=== PATIENT | female | born 1995 | race American Indian/Alaskan Native ===

== ENCOUNTER 2016-12-21 19:36 | Emergency (ER) | payer SELFPAY ==
[2016-12-21 20:22] VITALS: BP 159/101
[2016-12-21 20:52] LABS: Hematocrit 37.3 % (30.3-42.9); Hemoglobin 11.9 gm/dl (10.1-14.3); Mean Corpuscular HGB Conc 32 % (30-34); Mean Corpuscular Volume 81 fl (79-97); Platelet Count 252 K/mm3 (140-440); Red Blood Count 4.62 M/mm3 (3.65-5.03); Red Cell Distribution Width 13.2 % (13.2-15.2); White Blood Count 5.1 K/mm3 (4.5-11.0)
[2016-12-21 21:03] LABS: Anion Gap 17 mmol/L; Blood Urea Nitrogen 9 mg/dL (7-17); Calcium 8.9 mg/dL (8.4-10.2); Carbon Dioxide 22 mmol/L (22-30); Chloride 99.4 mmol/L (98-107); Glucose 89 mg/dL (65-100); Potassium 3.8 mmol/L (3.6-5.0); Sodium 135 mmol/L (137-145)
[2016-12-21 21:13] LABS: Bilirubin,Urine NEG (Negative); Blood,Urine NEG (Negative); Ketones,Urine NEG (Negative); Leukocyte Esterase,Urine NEG (Negative); Mucus,Urine FEW /HPF; Nitrite,Urine NEG (Negative); Protein,Urine <15 mg/dL mg/dL (Negative); RBC,Urine < 1.0 /HPF (0.0-6.0)
[2016-12-21 21:21] LABS: Mean Corpuscular Hemoglobin 26 pg (28-32)
[2016-12-21] MEDS ORDERED: TYLENOL PO ONE (21:56)
[2016-12-21] MEDS ORDERED: ZOFRAN ODT PO ONE (21:56)
[2016-12-21] MEDS ORDERED: TORADOL IM ONE (21:56)
--- NOTE | 2016-12-21 22:33 | Emergency Department Report ---
HPI - General Chief Complaint: Nausea/Vomiting/Diarrhea Time Seen by Provider: 12/21/16 21:55 - HPI HPI: The patient is a 21-year-old female who presents for evaluation of abdominal pain. The patient reports 2 days of epigastric abdominal pain, 9/10 in severity , cramping in quality, exacerbated with retching and vomiting. She reports associated with episodes of nausea and no bruises, nonbloody emesis and loose watery stools absent of blood. The patient denies fever, chills, night sweats, chest pain, dyspnea, or defecate dark tarry stool, dysuria, hematuria, flank pain, vaginal discharge, inability to pass flatus. ED Past Medical Hx - Past Medical History Previous Medical History?: No Hx Hypertension: Yes (noncompliant with HCTZ x3 mos) Hx Headaches / Migraines: Yes Additional medical history: glaucoma, anemic - Surgical History Past Surgical History?: No - Social History Smoking Status: Never Smoker Substance Use Type: None - Medications Home Medications: Home Medications Medication Instructions Recorded Confirmed Last Taken Type Menthol/Colloidal Oatmeal [Eucerin 200 ml TP TID #1 lotion 06/15/15 Unknown Rx Calm Itch-Relief Lot] Butalbit/Acetamin/Caff/Codeine 1 cap PO Q8HR PRN #20 cap 11/29/15 Unknown Rx [Fioricet/Codeine 51-979-02-30] Ketorolac [Toradol] 10 mg PO Q6H PRN #20 tablet 04/29/16 Unknown Rx Ondansetron [Zofran TAB] 4 mg PO Q8HR PRN #20 tablet 04/29/16 Unknown Rx SUMAtriptan SUCCINATE [Imitrex] 50 mg PO BID #60 tab 04/29/16 Unknown Rx Cyclobenzaprine HCl [Flexeril 5 MG 5 mg PO TID #20 tab 06/05/16 Unknown Rx TAB] Hydrochlorothiazide [HCTZ] 25 mg PO QAM #30 tablet 06/05/16 Unknown Rx Ibuprofen [Motrin 800 MG tab] 800 mg PO Q8H PRN #30 tablet 06/05/16 Unknown Rx Ibuprofen [Motrin 800 MG tab] 800 mg PO Q8HR PRN #20 tablet 09/03/16 Unknown Rx HYDROcodone/APAP 7.5-325 [[place] 1 each PO Q8HR PRN #12 tablet 12/22/16 Unknown Rx 7.5-325 mg TAB] Ondansetron [Zofran TAB] 4 mg PO Q8HR PRN #20 tablet 12/22/16 Unknown Rx ED Review of Systems ROS: Stated complaint: EMESIS/ABD PAIN/DIARRHEA Other details as noted in HPI Constitutional: denies: fever ENT: denies: throat or neck pain Respiratory: denies: cough, shortness of breath Cardiovascular: denies: chest pain Endocrine: denies unexplained weight loss or gain Gastrointestinal: reports abdominal pain, nausea, vomiting, diarrhea Genitourinary: denies: dysuria Musculoskeletal: denies: leg swelling Skin: denies: rash Neurological: denies: headache Hematological/Lymphatic: denies: easy bleeding or easy bruising Psych: denies sadness or hopelessness Physical Exam - Physical Exam Vital Signs: Vital Signs 12/21/16 20:18 Temperature 99.6 F Pulse Rate 108 H Respiratory 18 Rate Blood Pressure 159/101 O2 Sat by Pulse 99 Oximetry Physical Exam: General: well-nourished, well-developed, no acute distress Head: Normocephalic, atraumatic Eyes: normal sclera ENT: Mucous membranes are pale and dry Neck: trachea midline, neck supple, No neck stiffness, no cervical adenopathy Respiratory: Breath sounds equal bilaterally, no wheezing, rales, or rhonchi Cardio: S1 and S2 present, no murmurs, rubs, gallops, capillary refill is delayed Abdomen: Normoactive bowel sounds, soft abdomen, epigastric tenderness to palpation present, no rigidity, no guarding or rebound tenderness Musc: No pitting edema Skin: No rash Neuro: no facial drooping, normal speech Psych: Normal affect ED Course Vital Signs 12/21/16 20:18 Temperature 99.6 F Pulse Rate 108 H Respiratory 18 Rate Blood Pressure 159/101 O2 Sat by Pulse 99 Oximetry ED Medical Decision Making - Lab Data Result diagrams: 12/21/16 20:33 12/21/16 20:33 - Medical Decision Making The patient was seen and examined by myself. The patient is placed on a shingles roofer helper and continuous pulse ox. On initial evaluation, the patient was found to be in no distress. Evaluation orders are placed. The patient is given an IM dose of toradol for her pain and Zofran for nausea. Lab results were non- concerning including WBC, hemoglobin, hematocrit, electrolytes, renal function, LFTs, lipase, and neg preg test. The patient was reevaluated and reported that their symptoms were markedly improved. The patient is stable for discharge with outpatient follow-up. The patient is given follow-up and return instructions. The patient expressed understanding and agreed with the plan. The patient is discharged in stable condition. Critical care attestation.: If time is entered above; I have spent that time in minutes in the direct care of this critically ill patient, excluding procedure time. ED Disposition Clinical Impression: Abdominal pain, acute, epigastric, Dehydration Disposition: DISCHARGED TO HOME OR SELFCARE Is pt being admited?: No Does the pt Need Aspirin: No Condition: Stable Instructions: Gastroenteritis (ED), Acute Abdominal Pain (ED), Food Poisoning ( ED) Referrals: PRIMARY CARE, [Primary Care Provider] - 3-5 Days Time of Disposition: 22:16
[2016-12-21 22:55] LABS: Basophils % (Manual) 0 % (0.0-1.8); Blastocytes % (Manual) 0 %
[2016-12-21 22:56] LABS: Anisocytosis 1+
[2016-12-21 22:57] LABS: Ovalocytes Few
[2016-12-21 22:58] LABS: Diff Status Complete
[2016-12-22 00:25] LABS: Alanine Aminotransferase 22 units/L (7-56); Albumin 3.8 g/dL (3.9-5); Albumin/Globulin Ratio 0.9 %; Alkaline Phosphatase 129 units/L (35-129); Bilirubin,Total 0.6 mg/dL (0.1-1.2); Lipase 18 units/L (13-60); Total Protein 7.9 g/dL (6.3-8.2)
[2016-12-22 00:26] LABS: Bilirubin,Direct < 0.2 mg/dL (0-0.2); Bilirubin,Indirect 0.4 mg/dL
== END 2016-12-22 00:51 | disposition home or self-care (01) ==
LOC: ED 19:36
DX: E86.0 Dehydration (principal); R13.10 Dysphagia, unspecified; I10 Essential (primary) hypertension; G43.909 Migraine, unspecified, not intractable, without status migrainosus
CPT/HCPCS: 36415; 80048; 80074; 81001; 81025; 83690; 85007; 85025; 96372; 99284; J1885; Q0162

== ENCOUNTER 2017-02-04 11:18 | Emergency (ER) | payer SELFPAY ==
[2017-02-04] MEDS ORDERED: DECADRON IM ONE (12:42)
[2017-02-04] MEDS ORDERED: BENADRYL PO ONE (12:42)
[2017-02-04] MEDS ORDERED: PEPCID PO ONE (12:43)
[2017-02-04] MEDS ORDERED: CATAPRES ONE (12:56)
[2017-02-04] MEDS ORDERED: CATAPRES PO ONE (12:58)
[2017-02-04 14:21] VITALS: BP 145/99
--- NOTE | 2017-02-04 14:27 | Emergency Department Report ---
Entered by KOMAL BILLINGSLEY, acting as scribe for EMILY BECERRIL PA. HPI - General Chief Complaint: Allergic Reaction Time Seen by Provider: 02/04/17 12:27 - HPI HPI: 21 year old female with a PMHx of HTN and migranes presents to the ED c/o an allergic reaction that began yesterday afternoon. Patient states she applied Blistex Daily Conditioning Treatment to her lips and they subsequently swelled right after application. Associated symptoms include itching, burning, and blisters with clear purulent drainage, but she denies fever, chills, nausea, vomiting, chest pain, SOB, and abdominal pain. Notes taking Benadryl last night with no relief. Reports having similar symptoms in the past with different lip applications. Patient is noncompliant with her blood pressure medication. ED Past Medical Hx - Past Medical History Previous Medical History?: No Hx Hypertension: Yes (noncompliant with HCTZ x3 mos) Hx Headaches / Migraines: Yes Additional medical history: glaucoma, anemic - Surgical History Past Surgical History?: No Hx Coronary Stent: No Hx Cholecystectomy: No Hx Appendectomy: No - Social History Smoking Status: Current Every Day Smoker Substance Use Type: None - Medications Home Medications: Home Medications Medication Instructions Recorded Confirmed Last Taken Type Menthol/Colloidal Oatmeal [Eucerin 200 ml TP TID #1 lotion 06/15/15 Unknown Rx Calm Itch-Relief Lot] Butalbit/Acetamin/Caff/Codeine 1 cap PO Q8HR PRN #20 cap 11/29/15 Unknown Rx [Fioricet/Codeine 98-443-10-30] Ketorolac [Toradol] 10 mg PO Q6H PRN #20 tablet 04/29/16 Unknown Rx Ondansetron [Zofran TAB] 4 mg PO Q8HR PRN #20 tablet 04/29/16 Unknown Rx SUMAtriptan SUCCINATE [Imitrex] 50 mg PO BID #60 tab 04/29/16 Unknown Rx Cyclobenzaprine HCl [Flexeril 5 MG 5 mg PO TID #20 tab 06/05/16 Unknown Rx TAB] Hydrochlorothiazide [HCTZ] 25 mg PO QAM #30 tablet 06/05/16 Unknown Rx Ibuprofen [Motrin 800 MG tab] 800 mg PO Q8H PRN #30 tablet 06/05/16 Unknown Rx Ibuprofen [Motrin 800 MG tab] 800 mg PO Q8HR PRN #20 tablet 09/03/16 Unknown Rx HYDROcodone/APAP 7.5-325 [[place] 1 each PO Q8HR PRN #12 tablet 12/22/16 Unknown Rx 7.5-325 mg TAB] Ondansetron [Zofran TAB] 4 mg PO Q8HR PRN #20 tablet 12/22/16 Unknown Rx diphenhydrAMINE [Benadryl CAP] 25 mg PO Q6HR PRN #40 capsule 02/04/17 Unknown Rx predniSONE [Deltasone] 20 mg PO QDAY #5 tab 02/04/17 Unknown Rx ED Review of Systems ROS: Stated complaint: ALLERGIC REACTION Other details as noted in HPI Comment: All other systems reviewed and negative Constitutional: denies: chills, fever, other (tingling) Eyes: denies: eye pain ENT: denies: ear pain, throat pain Respiratory: denies: cough, orthopnea, shortness of breath, SOB with exertion, SOB at rest, stridor Cardiovascular: denies: chest pain, dyspnea on exertion, orthopnea Gastrointestinal: denies: abdominal pain, nausea, vomiting Skin: other (swollen lips and blisters with clear drainage). denies: rash Neurological: denies: numbness Physical Exam - Physical Exam Vital Signs: Vital Signs 02/04/17 11:52 Temperature 98.3 F Pulse Rate 77 Respiratory 18 Rate Blood Pressure 161/112 O2 Sat by Pulse 100 Oximetry General: General: The patient is well-developed and well-nourished. Patient is in NAD. Physical Exam: HEAD: Normocephalic. Atraumatic. EYES: Extraocular motions are intact, PERRL. EARS: External auditory canals and tympanic membranes clear NOSE: Normal nasal mucosa with no nasal discharge. THROAT: No erythema, swelling or exudates. NECK: Supple, nontender, without lymphadenopathy. No meningitic signs are noted. CHEST/LUNGS: Clear to auscultation throughout. HEART/CARDIOVASCULAR: Regular rate and rhythm. No murmurs, rubs or gallops. ABDOMEN: Abdomen is soft, nontender. Bowel sounds normoactive. No guarding or rebound tenderness. EXTREMITIES: No cyanosis, clubbing or edema. Skin: warm, dry, and intact. Lip swelling with no blisters or purulent drainage present. NEURO: Alert and oriented x 3. Psychiatric: Normal mood. Normal affect. ED Course Vital Signs 02/04/17 11:52 Temperature 98.3 F Pulse Rate 77 Respiratory 18 Rate Blood Pressure 161/112 O2 Sat by Pulse 100 Oximetry ED Medical Decision Making - Lab Data Vital Signs 02/04/17 02/04/17 02/04/17 11:52 13:07 13:46 Temperature 98.3 F 97.8 F Pulse Rate 77 82 66 Respiratory 18 18 Rate Blood Pressure 161/112 165/121 Blood Pressure 158/108 [Right] O2 Sat by Pulse 100 100 Oximetry 02/04/17 14:21 Temperature Pulse Rate 88 Respiratory 18 Rate Blood Pressure Blood Pressure 145/99 [Right] O2 Sat by Pulse Oximetry - Medical Decision Making 21-year-old female presents today complaining of lip swelling close with Blistex application and elevated blood pressure. Patient has history of hypertension and is noncompliant with her medication. Patient was given clonidine 0.2 mg, Benadryl, Pepcid and Decadron. Patient reports some symptomatic relief. Patient is in no acute distress at this time. She will be discharged home and is encouraged to follow up with a primary care provider. She will be sent home on Benadryl and steroid and is encouraged to return to the emergency room for any worsening symptoms. Emphasized the importance of follow up with primary care physician and explained to patient that uncontrolled hypertension can lead to long-term complications of hypertension/elevated blood pressure including stroke, heart attack, disability, , paralysis, permanent loss of quality of life. Patient expressed understanding. She states she has hydrochlorothiazide at home and will take it regularly. Critical care attestation.: If time is entered above; I have spent that time in minutes in the direct care of this critically ill patient, excluding procedure time. ED Disposition Clinical Impression: Allergic reaction Qualifiers: Encounter type: initial encounter Qualified Code(s): T78.40XA - Allergy, unspecified, initial encounter Disposition: DISCHARGED TO HOME OR SELFCARE Is pt being admited?: No Does the pt Need Aspirin: No Condition: Stable Instructions: Anaphylaxis (ED), Allergies (ED) Additional Instructions: Follow-up with primary care provider. Return to the emergency department if symptoms worsen. Prescriptions: diphenhydrAMINE [Benadryl CAP] 25 mg PO Q6HR PRN #40 capsule PRN Reason: Itching predniSONE [Deltasone] 20 mg PO QDAY #5 tab Referrals: PRIMARY CARE,MD [Primary Care Provider] - 3-5 Days [facility] [Outside] - 3-5 Days Forms: Work/School Release Form(ED) Time of Disposition: 14:23 This documentation as recorded by the JOSE CRUZ masters JASMINE,accurately reflects the service I personally performed and the decisions made by ,EMILY BECERRIL PA.
== END 2017-02-04 16:54 | disposition home or self-care (01) ==
LOC: ED 11:18
DX: T78.40XA Allergy, unspecified, initial encounter (principal); I10 Essential (primary) hypertension; G43.909 Migraine, unspecified, not intractable, without status migrainosus; F17.200 Nicotine dependence, unspecified, uncomplicated
CPT/HCPCS: 96372; 99282; J1100

== ENCOUNTER 2017-03-19 20:35 | Emergency (ER) | payer SELFPAY ==
[2017-03-19] MEDS ORDERED: TYLENOL ONE (23:40)
[2017-03-19] MEDS ORDERED: ORAPRED ONE ×2 (23:41→23:43)
[2017-03-19] MEDS ORDERED: APRESOLINE ONE (23:51)
[2017-03-19] MEDS ORDERED: ORAPRED PO ONE (23:57)
[2017-03-19] MEDS ORDERED: TYLENOL PO ONE (23:58)
[2017-03-19] MEDS ORDERED: APRESOLINE PO ONE (23:58)
[2017-03-20] VITALS: BP 160/115
--- NOTE | 2017-03-24 00:51 | ED Elopement Review ---
ED Pt Elopement review - Call Back decision Pt Call Back Decision: No action required
== END 2017-03-20 01:30 | disposition left against medical advice (07) ==
LOC: ED 20:35
DX: R50.9 Fever, unspecified (principal); Z53.21 Procedure and treatment not carried out due to patient leaving prior to being seen by health care provider
CPT/HCPCS: 87116; 87430; J7510

== ENCOUNTER 2017-03-21 22:58 | Emergency (ER) | payer SELFPAY ==
[2017-03-21] MEDS ORDERED: TYLENOL ONE ×2 (23:56→23:58)
[2017-03-22] MEDS ORDERED: TYLENOL PO ONE
[2017-03-22] MEDS ORDERED: DELTASONE PO ONE (07:40)
--- NOTE | 2017-03-22 07:57 | Emergency Department Report ---
HPI - General Chief Complaint: Sore Throat Time Seen by Provider: 03/22/17 07:34 - HPI HPI: Patient is a 21-year-old female who presents to ED with his mother complaining of throat pain 4 days. Patient describes pain as throbbing in nature, 8 out of 10 intensity, nonradiating, localized to his throat. Admits pain with swallowing and eating. Patient admits no appetite due to throat pain. Patient admits dry, nonproductive cough. Patient admits mild fever Patient denies nausea/vomiting/abdominal pain/shortness of breath/chest pain/ headache. ED Past Medical Hx - Past Medical History Previous Medical History?: Yes Hx Hypertension: Yes (noncompliant with HCTZ x3 mos) Hx Headaches / Migraines: Yes Additional medical history: glaucoma, anemic - Surgical History Hx Coronary Stent: No Hx Cholecystectomy: No Hx Appendectomy: No - Social History Smoking Status: Never Smoker Substance Use Type: Alcohol - Medications Home Medications: Home Medications Medication Instructions Recorded Confirmed Last Taken Type Menthol/Colloidal Oatmeal [Eucerin 200 ml TP TID #1 lotion 06/15/15 Unknown Rx Calm Itch-Relief Lot] Butalbit/Acetamin/Caff/Codeine 1 cap PO Q8HR PRN #20 cap 11/29/15 Unknown Rx [Fioricet/Codeine 14-882-39-30] Ketorolac [Toradol] 10 mg PO Q6H PRN #20 tablet 04/29/16 Unknown Rx Ondansetron [Zofran TAB] 4 mg PO Q8HR PRN #20 tablet 04/29/16 Unknown Rx SUMAtriptan SUCCINATE [Imitrex] 50 mg PO BID #60 tab 04/29/16 Unknown Rx Cyclobenzaprine HCl [Flexeril 5 MG 5 mg PO TID #20 tab 06/05/16 Unknown Rx TAB] Hydrochlorothiazide [HCTZ] 25 mg PO QAM #30 tablet 06/05/16 Unknown Rx Ibuprofen [Motrin 800 MG tab] 800 mg PO Q8HR PRN #20 tablet 09/03/16 Unknown Rx HYDROcodone/APAP 7.5-325 [[place] 1 each PO Q8HR PRN #12 tablet 12/22/16 Unknown Rx 7.5-325 mg TAB] Ondansetron [Zofran TAB] 4 mg PO Q8HR PRN #20 tablet 12/22/16 Unknown Rx predniSONE [Deltasone] 20 mg PO QDAY #5 tab 02/04/17 Unknown Rx Ibuprofen [Motrin 800 MG tab] 800 mg PO Q8H PRN #30 tablet 03/22/17 Unknown Rx Pseudoephedrine [Sudafed] 30 mg PO TID #30 tablet 03/22/17 Unknown Rx diphenhydrAMINE [Benadryl CAP] 25 mg PO Q6HR PRN #40 capsule 03/22/17 Unknown Rx ED Review of Systems ROS: Stated complaint: SORE THROAT W/SWELLING/EARS PAINFUL/HEADACHE Other details as noted in HPI Constitutional: denies: chills, fever Eyes: denies: eye pain, eye discharge, vision change ENT: ear pain, throat pain. denies: dental pain, hearing loss, congestion Respiratory: cough. denies: shortness of breath, wheezing Cardiovascular: denies: chest pain, palpitations Endocrine: no symptoms reported Gastrointestinal: denies: abdominal pain, nausea, vomiting, diarrhea, constipation, hematemesis Genitourinary: denies: urgency, dysuria, discharge Musculoskeletal: denies: back pain, joint swelling, arthralgia Skin: denies: rash, lesions Neurological: denies: headache, weakness, paresthesias Psychiatric: denies: anxiety, depression Hematological/Lymphatic: denies: easy bleeding, easy bruising Physical Exam - Physical Exam Vital Signs: Vital Signs 03/21/17 03/22/17 03/22/17 23:50 00:01 07:28 Temperature 101.3 F H 98.9 F Pulse Rate 111 H 93 H Respiratory 18 20 16 Rate Blood Pressure 146/96 Blood Pressure 157/112 [Left] O2 Sat by Pulse 98 100 Oximetry Physical Exam: GENERAL: Alert and oriented x3, no apparent distress, Normal Gait, atraumatic. HEAD: Head is normocephalic and a-traumatic. EYES: Extra ocular muscles are intact. Pupils are equal, round, and reactive to light and accommodation. EARS: symetrical, atraumatic, non tender, ear canal clear and moderate cerumen, tympanic membrance non inflamed. Serous fluid behind tympanic membrane Bilaterally. gross auditory nml bilaterally. NOSE: Nose symetrical, Nontender,Nares appeared normal. MOUTH:Mouth is well hydrated and without lesions. Tonsils nonerythematous, mildly swollen, Uvula midline, Tongue not elevated. Mucous membranes are moist. Posterior pharynx clear, no exudate or lesions. Patent airways. NECK: Supple. Non edematous, No carotid bruits. No lymphadenopathy or thyromegaly. LUNGS: Symetrical with respiration, No wheezing, no rales or crackles, CTAB. HEART: S1, S2 present, regular rate and rhythm without murmur, no rubs, no gallops. SKIN: Warm and dry, No lesions, No ulceration or induration present. ED Course Vital Signs 03/21/17 03/22/17 03/22/17 23:50 00:01 07:28 Temperature 101.3 F H 98.9 F Pulse Rate 111 H 93 H Respiratory 18 20 16 Rate Blood Pressure 146/96 Blood Pressure 157/112 [Left] O2 Sat by Pulse 98 100 Oximetry ED Medical Decision Making - Medical Decision Making 21-year-old female presents with upper respiratory infection ED course: Patient received Magic mouthwash, Tylenol, prednisone ED stay Rapid strep test ordered. Rapid strep is negative, culture pending Discussed results with patient. Discussed the patient to rest, take medications as prescribed. Discussion a patient upper respiratory infections resolve on its own viral in nature. Vital signs much better. Patient's fever reduced ED stay She is in no acute distress. She reports feeling better. Discussed the patient follow up with primary care physician. Critical care attestation.: If time is entered above; I have spent that time in minutes in the direct care of this critically ill patient, excluding procedure time. ED Disposition Clinical Impression: URI (upper respiratory infection) Qualifiers: URI type: unspecified URI Qualified Code(s): J06.9 - Acute upper respiratory infection, unspecified Disposition: TO HOME OR SELFCARE Is pt being admited?: No Does the pt Need Aspirin: No Condition: Stable Instructions: Upper Respiratory Infection (ED) Prescriptions: diphenhydrAMINE [Benadryl CAP] 25 mg PO Q6HR PRN #40 capsule PRN Reason: Itching Ibuprofen [Motrin 800 MG tab] 800 mg PO Q8H PRN #30 tablet PRN Reason: Pain Pseudoephedrine [Sudafed] 30 mg PO TID #30 tablet Referrals: PRIMARY CARE, [Primary Care Provider] - 3-5 Days SHAGUFTA BUSBY MD [Referring] - 3-[address] [facility] [Outside] - 3-5 Days [facility] [Outside] - 3-5 Days [facility] [Outside] - 3-5 Days Forms: Work/School Release Form(ED) Time of Disposition: 08:42
[2017-03-22] MEDS ORDERED: MAGIC MOUTHWASH PO ONE (08:30)
[2017-03-22 09:08] VITALS: BP 147/105
== END 2017-03-22 09:07 | disposition home or self-care (01) ==
LOC: ED 22:58
DX: J06.9 Acute upper respiratory infection, unspecified (principal); I10 Essential (primary) hypertension; G43.909 Migraine, unspecified, not intractable, without status migrainosus; H40.9 Unspecified glaucoma; D64.9 Anemia, unspecified
CPT/HCPCS: 87116; 87430; 99282; J7512

== ENCOUNTER 2017-09-23 20:31 | Emergency (ER) | payer BC ==
[2017-09-23 21:14] LABS: Basophils % (Auto) 0.3 % (0.0-1.8); Eosinophils % (Auto) 0.8 % (0.0-4.3); Hemoglobin 12.5 gm/dl (10.1-14.3); Mean Corpuscular HGB Conc 33 % (30-34); Mean Corpuscular Hemoglobin 27 pg (28-32); Mean Corpuscular Volume 82 fl (79-97); Platelet Count 312 K/mm3 (140-440); Red Blood Count 4.61 M/mm3 (3.65-5.03); Red Cell Distribution Width 14.3 % (13.2-15.2); White Blood Count 10.1 K/mm3 (4.5-11.0)
[2017-09-23 21:41] LABS: Anion Gap 21 mmol/L; BUN/Creatinine Ratio 14; Blood Urea Nitrogen 13 mg/dL (7-17); Calcium 9.2 mg/dL (8.4-10.2); Carbon Dioxide 20 mmol/L (22-30); Chloride 100.8 mmol/L (98-107); Glucose 113 mg/dL (65-100); Potassium 4.2 mmol/L (3.6-5.0); Sodium 138 mmol/L (137-145)
[2017-09-23 21:45] LABS: Urine Drugs of Abuse Note Disclamer
[2017-09-23 21:57] LABS: Bilirubin,Urine NEG (Negative); Blood,Urine NEG (Negative); Ketones,Urine NEG (Negative); Leukocyte Esterase,Urine NEG (Negative); Mucus,Urine FEW /HPF; Nitrite,Urine NEG (Negative); Urobilinogen,Urine < 2.0 mg/dL (<2.0)
[2017-09-24] MEDS ORDERED: ZOFRAN IV ONE (09:16)
[2017-09-24] MEDS ORDERED: PEPCID IV ONE (09:16)
[2017-09-24] MEDS ORDERED: NACL 0.9% 1000 ML 1,000 ML IV ONE (09:16)
--- NOTE | 2017-09-24 09:23 | Emergency Department Report ---
HPI - General Chief Complaint: Nausea/Vomiting/Diarrhea Time Seen by Provider: 09/24/17 09:09 - HPI HPI: Call 25 The patient is a 22-year-old female presenting with a chief complaint of abdominal pain. The patient states last night she developed midepigastric and lower abdominal pain described as constant in nature. The patient states she also developed nausea vomiting and diarrhea last night. Patient states she noticed patches of blood in her vomitus at times. Patient denies sick contacts. Patient denies any history of fever. Patient gives her pain score 7/ 10 Location: Abdomen Duration: Constant since last night Quality: Pain Severity: Moderate Modifying factors: [see above] Context: [see above] Mode of transportation: The patient drove herself to the emergency department and she has a young child with her ED Past Medical Hx - Past Medical History Hx Hypertension: Yes (noncompliant with HCTZ x3 mos) Hx Headaches / Migraines: Yes Additional medical history: glaucoma, anemic - Family History Family history: no significant - Social History Smoking Status: Never Smoker Substance Use Type: Alcohol (occasional) - Medications Home Medications: Home Medications Medication Instructions Recorded Confirmed Last Taken Type Menthol/Colloidal Oatmeal [Eucerin 200 ml TP TID #1 lotion 06/15/15 Unknown Rx Calm Itch-Relief Lot] Butalbit/Acetamin/Caff/Codeine 1 cap PO Q8HR PRN #20 cap 11/29/15 Unknown Rx [Fioricet/Codeine [id number]] Ketorolac [Toradol] 10 mg PO Q6H PRN #20 tablet 04/29/16 Unknown Rx Ondansetron [Zofran TAB] 4 mg PO Q8HR PRN #20 tablet 04/29/16 Unknown Rx SUMAtriptan SUCCINATE [Imitrex] 50 mg PO BID #60 tab 04/29/16 Unknown Rx Cyclobenzaprine HCl [Flexeril 5 MG 5 mg PO TID #20 tab 06/05/16 Unknown Rx TAB] Hydrochlorothiazide [HCTZ] 25 mg PO QAM #30 tablet 06/05/16 Unknown Rx Ibuprofen [Motrin 800 MG tab] 800 mg PO Q8HR PRN #20 tablet 09/03/16 Unknown Rx HYDROcodone/APAP 7.5-325 [[place] 1 each PO Q8HR PRN #12 tablet 12/22/16 Unknown Rx 7.5-325 mg TAB] Ondansetron [Zofran TAB] 4 mg PO Q8HR PRN #20 tablet 12/22/16 Unknown Rx predniSONE [Deltasone] 20 mg PO QDAY #5 tab 02/04/17 Unknown Rx Ibuprofen [Motrin 800 MG tab] 800 mg PO Q8H PRN #30 tablet 03/22/17 Unknown Rx Pseudoephedrine [Sudafed] 30 mg PO TID #30 tablet 03/22/17 Unknown Rx diphenhydrAMINE [Benadryl CAP] 25 mg PO Q6HR PRN #40 capsule 03/22/17 Unknown Rx Diphenoxylate HCl/Atropine 1 each PO QID PRN #20 tablet 09/24/17 Unknown Rx [Lomotil 2.5-0.025 mg Tablet] Promethazine [Phenergan TAB] 25 mg PO Q6HR PRN #20 tab 09/24/17 Unknown Rx Promethazine [Phenergan] [address] Q6HR PRN #5 supp.rect 09/24/17 Unknown Rx traMADol [Ultram] 50 mg PO Q6HR PRN #14 tablet 09/24/17 Unknown Rx ED Review of Systems ROS: Stated complaint: ETOH; N/V Other details as noted in HPI Constitutional: denies: fever Eyes: denies: eye pain ENT: denies: throat pain Cardiovascular: denies: chest pain Gastrointestinal: abdominal pain, nausea, vomiting, diarrhea, hematemesis Genitourinary: denies: dysuria Musculoskeletal: denies: back pain Neurological: headache Physical Exam - Physical Exam Vital Signs: Vital Signs 09/23/17 09/24/17 09/24/17 20:56 02:34 07:12 Temperature 98 F 98.0 F Pulse Rate 86 69 82 Respiratory 16 14 18 Rate Blood Pressure 137/101 162/96 Blood Pressure 153/108 [Right] O2 Sat by Pulse 99 100 Oximetry Physical Exam: GENERAL: The patient is well-developed well-nourished female lying on stretcher not appearing to be in acute distress. [] HEENT: Normocephalic. Atraumatic. Extraocular motions are intact. Patient has moist mucous membranes. NECK: Supple. Trachea midline CHEST/LUNGS: Clear to auscultation. There is no respiratory distress noted. HEART/CARDIOVASCULAR: Regular. There is no tachycardia. There is no gallop rub or murmur. ABDOMEN: Abdomen is soft, with tenderness to palpation in the left lower quadrant, suprapubic and right lower quadrant. Patient has normal bowel sounds. There is no abdominal distention. SKIN: There is no rash. There is no edema. There is no diaphoresis. NEURO: The patient is awake, alert, and oriented. The patient is cooperative. The patient has normal speech MUSCULOSKELETAL: There is no evidence of acute injury. ED Course Vital Signs 09/23/17 09/24/17 09/24/17 20:56 02:34 07:12 Temperature 98 F 98.0 F Pulse Rate 86 69 82 Respiratory 16 14 18 Rate Blood Pressure 137/101 162/96 Blood Pressure 153/108 [Right] O2 Sat by Pulse 99 100 Oximetry ED Medical Decision Making - Lab Data Result diagrams: 09/23/17 21:06 09/23/17 21:01 Laboratory Tests 09/23/17 09/23/17 09/23/17 21:01 21:06 21:06 WBC 10.1 RBC 4.61 Hgb 12.5 Hct 38.0 MCV 82 MCH 27 L MCHC 33 RDW 14.3 Plt Count 312 Lymph % (Auto) 9.6 L [place] % (Auto) 4.5 Eos % (Auto) 0.8 Baso % (Auto) 0.3 Lymph # 1.0 L [place] # 0.4 Eos # 0.1 Baso # 0.0 Seg Neutrophils % 84.8 H Seg Neutrophils # 8.5 H Sodium 138 Potassium 4.2 Chloride 100.8 Carbon Dioxide 20 L Anion Gap 21 BUN 13 Creatinine 0.9 Estimated GFR > 60 BUN/Creatinine Ratio 14 Glucose 113 H Calcium 9.2 HCG, Qual Negative Urine Color Urine Turbidity Urine pH Ur Specific [place] Urine Protein Urine Glucose (UA) Urine Ketones Urine Blood Urine Nitrite Urine Bilirubin Urine Urobilinogen Ur Leukocyte Esterase Urine WBC (Auto) Urine RBC (Auto) U Epithel Cells (Auto) Urine Mucus Urine Opiates Screen Urine Methadone Screen Ur Barbiturates Screen Ur Phencyclidine Scrn Ur Amphetamines Screen U Benzodiazepines Scrn Urine Cocaine Screen U Marijuana (THC) Screen Drugs of Abuse Note Plasma/Serum Alcohol 09/23/17 09/23/17 09/23/17 21:16 21:39 21:39 WBC RBC Hgb Hct MCV MCH MCHC RDW Plt Count Lymph % (Auto) [place] % (Auto) Eos % (Auto) Baso % (Auto) Lymph # [place] # Eos # Baso # Seg Neutrophils % Seg Neutrophils # Sodium Potassium Chloride Carbon Dioxide Anion Gap BUN Creatinine Estimated GFR BUN/Creatinine Ratio Glucose Calcium HCG, Qual Urine Color Yellow Urine Turbidity Clear Urine pH 7.0 Ur Specific [place] 1.026 Urine Protein 100 mg/dl Urine Glucose (UA) Neg Urine Ketones Neg Urine Blood Neg Urine Nitrite Neg Urine Bilirubin Neg Urine Urobilinogen < 2.0 Ur Leukocyte Esterase Neg Urine WBC (Auto) 2.0 Urine RBC (Auto) 1.0 U Epithel Cells (Auto) 4.0 Urine Mucus Few Urine Opiates Screen Presumptive negative Urine Methadone Screen Presumptive negative Ur Barbiturates Screen Presumptive negative Ur Phencyclidine Scrn Presumptive negative Ur Amphetamines Screen Presumptive negative U Benzodiazepines Scrn Presumptive negative Urine Cocaine Screen Presumptive negative U Marijuana (THC) Screen Presumptive positive Drugs of Abuse Note Disclamer Plasma/Serum Alcohol < 0.01 - Radiology Data Radiology results: report reviewed (CT abdomen and pelvis), image reviewed (CT abdomen and pelvis) CT ABDOMEN AND PELVIS WITH CONTRAST INDICATION: Abdominal pain, nausea, vomiting, diarrhea. COMPARISON: None similar. FINDINGS: Abdomen and pelvis CT performed following intravenous administration of 100 cc of Omnipaque 300. LUNG BASES: Mild nonspecific distal esophageal wall prominence/thickening, not excluded for gastroesophageal reflux and/or hiatal hernia, amongst others. ABDOMEN: Liver, spleen, gallbladder, pancreas, adrenals, aorta, IVC and kidneys within normal limits. Right hepatic lobe approximately 17.5 cm in mid clavicular length. Patent veins. No ascites. Approximately 9 mm nonspecific aortocaval lymph node, axial image 159, series 2. Nonopacified GI tract evaluation limited, though grossly nonobstructive. Normal appendix noted anterior to L5-S1 disc level. Grossly unremarkable, decompressed imaged colon. PELVIS: Approximately 4.2 x 3.2 cm right adnexal/ovarian cyst. A tampon also incidentally seen. Otherwise grossly unremarkable urinary bladder, left adnexa/ovary, rectosigmoid and the urinary bladder. No free fluid or significant adenopathy. Unremarkable bones. CONCLUSION: No CT evidence of bowel obstruction or definite acute GI abnormality with few incidental findings, including right adnexal/ovarian cyst, as above. Please correlate. Thank you for the opportunity to participate in this patient's care. Transcribed By: RS Dictated By: GERHARD GONZALEZ MD Electronically Authenticated By: GERHARD GONZALEZ MD Signed Date/Time: 09/24/17 1040 DD/ 1030 TD/TT: 09/24/17 1040 - Differential Diagnosis gastroenteritis, appendicitis Critical care attestation.: If time is entered above; I have spent that time in minutes in the direct care of this critically ill patient, excluding procedure time. ED Disposition Clinical Impression: Nausea vomiting and diarrhea Disposition: DC-01 TO HOME OR SELFCARE Is pt being admited?: No Does the pt Need Aspirin: No Condition: Stable Instructions: Acute Nausea and Vomiting (ED), Abdominal Pain (ED) Additional Instructions: Return to the emergency department immediately should you develop worsening symptoms, fever, inability to tolerate food or liquid or any other concerns. Prescriptions: Diphenoxylate HCl/Atropine [Lomotil 2.5-0.025 mg Tablet] 1 each PO QID PRN #20 tablet PRN Reason: Diarrhea Promethazine [Phenergan TAB] 25 mg PO Q6HR PRN #20 tab PRN Reason: Nausea Promethazine [Phenergan] [address] Q6HR PRN #5 supp.rect PRN Reason: Vomiting traMADol [Ultram] 50 mg PO Q6HR PRN #14 tablet PRN Reason: Pain Referrals: RENÉ HERNÁNDEZ MD [Primary Care Provider] - 3-5 Days LISA ACOSTA MD [Staff Physician] - 3-5 Days (Dr. Acosta is a nurseryman assistant. Please follow up with him for further evaluation) Time of Disposition: 11:18
--- NOTE | 2017-09-24 10:48 | Cat Scan Report ---
CT ABDOMEN AND PELVIS WITH CONTRAST INDICATION: Abdominal pain, nausea, vomiting, diarrhea. COMPARISON: None similar. FINDINGS: Abdomen and pelvis CT performed following intravenous administration of 100 cc of Omnipaque 300. LUNG BASES: Mild nonspecific distal esophageal wall prominence/thickening, not excluded for gastroesophageal reflux and/or hiatal hernia, amongst others. ABDOMEN: Liver, spleen, gallbladder, pancreas, adrenals, aorta, IVC and kidneys within normal limits. Right hepatic lobe approximately 17.5 cm in mid clavicular length. Patent veins. No ascites. Approximately 9 mm nonspecific aortocaval lymph node, axial image 159, series 2. Nonopacified GI tract evaluation limited, though grossly nonobstructive. Normal appendix noted anterior to L5-S1 disc level. Grossly unremarkable, decompressed imaged colon. PELVIS: Approximately 4.2 x 3.2 cm right adnexal/ovarian cyst. A tampon also incidentally seen. Otherwise grossly unremarkable urinary bladder, left adnexa/ovary, rectosigmoid and the urinary bladder. No free fluid or significant adenopathy. Unremarkable bones. CONCLUSION: No CT evidence of bowel obstruction or definite acute GI abnormality with few incidental findings, including right adnexal/ovarian cyst, as above. Please correlate. Thank you for the opportunity to participate in this patient's care.
[2017-09-24 11:38] VITALS: BP 148/92
== END 2017-09-24 11:36 | disposition home or self-care (01) ==
LOC: ED 20:31
DX: R11.2 Nausea with vomiting, unspecified (principal); R19.7 Diarrhea, unspecified; I10 Essential (primary) hypertension; G43.909 Migraine, unspecified, not intractable, without status migrainosus
CPT/HCPCS: 36415; 74177; 80048; 80307; 81001; 84703; 85025; 96361; 96374; 96375; 99284; G0480; J2405; J7030; Q9967; 80320

== ENCOUNTER 2018-04-15 02:12 | Emergency (ER) | payer BC, MEDICAID ==
[2018-04-15 03:18] LABS: Basophils % (Auto) 0.4 % (0.0-1.8); Eosinophils # (Auto) 0.5 K/mm3 (0.0-0.4); Eosinophils % (Auto) 7.7 % (0.0-4.3); Hemoglobin 11.5 gm/dl (10.1-14.3); Lymphocytes # (Auto) 2.6 K/mm3 (1.2-5.4); Lymphocytes % (Auto) 36.4 % (13.4-35.0); Mean Corpuscular HGB Conc 33 % (30-34); Mean Corpuscular Hemoglobin 27 pg (28-32); Mean Corpuscular Volume 82 fl (79-97); Monocytes # (Auto) 0.6 K/mm3 (0.0-0.8); Monocytes % (Auto) 8.2 % (0.0-7.3); Platelet Count 255 K/mm3 (140-440); Red Blood Count 4.29 M/mm3 (3.65-5.03); Red Cell Distribution Width 14.5 % (13.2-15.2)
[2018-04-15 03:36] LABS: Bacteria,Urine 1+ /HPF (Negative); Bilirubin,Urine NEG (Negative); Blood,Urine NEG (Negative); Color,Urine Yellow (Yellow); Mucus,Urine FEW /HPF
[2018-04-15 03:37] LABS: Alanine Aminotransferase 10 units/L (7-56); Albumin 4.4 g/dL (3.9-5); BUN/Creatinine Ratio 11; Blood Urea Nitrogen 11 mg/dL (7-17); Calcium 9.4 mg/dL (8.4-10.2); Hemolysis Index 0
[2018-04-15 05:47] LABS: HCG Qualitative,Urine Negative (Negative)
[2018-04-15] MEDS ORDERED: NACL 0.9% 1000 ML 1,000 ML IV ONE (06:32)
[2018-04-15] MEDS ORDERED: ZOFRAN IV ONE (06:32)
--- NOTE | 2018-04-15 06:41 | Emergency Department Report ---
HPI - General Chief Complaint: Abdominal Pain Time Seen by Provider: 04/15/18 06:12 - HPI HPI: 22-year-old -[place] female presents to the emergency department with complaint of a 2 week history of some upper abdominal pain that is associated with some nausea and vomiting. She denies any diarrhea, constipation, vaginal bleeding or discharge, fever, dysuria. She has not taken anything for her symptoms prior presentation. No recent travel or sick contacts at home. She denies any past medical history, however there appears to be some record of hypertension with medication noncompliance, migraine headaches, anemia. There are no known aggravating or alleviating factors. Currently the abdominal pain as 7 out of 10 in intensity. Patient also complains of some intermittent numbness down the left arm. She denies any motor deficits, obstruction to range of motion. ED Past Medical Hx - Past Medical History Hx Hypertension: Yes (noncompliant with HCTZ x3 mos) Hx Headaches / Migraines: Yes Additional medical history: glaucoma, anemic - Surgical History Hx Coronary Stent: No Hx Cholecystectomy: No Hx Appendectomy: No - Social History Smoking Status: Never Smoker Substance Use Type: Alcohol - Medications Home Medications: Home Medications Medication Instructions Recorded Confirmed Last Taken Type Menthol/Colloidal Oatmeal [Eucerin 200 ml TP TID #1 lotion 06/15/15 Unknown Rx Calm Itch-Relief Lot] Butalbit/Acetamin/Caff/Codeine 1 cap PO Q8HR PRN #20 cap 11/29/15 Unknown Rx [Fioricet/Codeine [id number]] Ketorolac [Toradol] 10 mg PO Q6H PRN #20 tablet 04/29/16 Unknown Rx Ondansetron [Zofran TAB] 4 mg PO Q8HR PRN #20 tablet 04/29/16 Unknown Rx SUMAtriptan SUCCINATE [Imitrex] 50 mg PO BID #60 tab 04/29/16 Unknown Rx Cyclobenzaprine HCl [Flexeril 5 MG 5 mg PO TID #20 tab 06/05/16 Unknown Rx TAB] Hydrochlorothiazide [HCTZ] 25 mg PO QAM #30 tablet 06/05/16 Unknown Rx Ibuprofen [Motrin 800 MG tab] 800 mg PO Q8HR PRN #20 tablet 09/03/16 Unknown Rx HYDROcodone/APAP 7.5-325 [[place] 1 each PO Q8HR PRN #12 tablet 12/22/16 Unknown Rx 7.5-325 mg TAB] Ondansetron [Zofran TAB] 4 mg PO Q8HR PRN #20 tablet 12/22/16 Unknown Rx predniSONE [Deltasone] 20 mg PO QDAY #5 tab 02/04/17 Unknown Rx Ibuprofen [Motrin 800 MG tab] 800 mg PO Q8H PRN #30 tablet 03/22/17 Unknown Rx Pseudoephedrine [Sudafed] 30 mg PO TID #30 tablet 03/22/17 Unknown Rx diphenhydrAMINE [Benadryl CAP] 25 mg PO Q6HR PRN #40 capsule 03/22/17 Unknown Rx Diphenoxylate HCl/Atropine 1 each PO QID PRN #20 tablet 09/24/17 Unknown Rx [Lomotil 2.5-0.025 mg Tablet] Promethazine [Phenergan TAB] 25 mg PO Q6HR PRN #20 tab 09/24/17 Unknown Rx Promethazine [Phenergan] 25 mg NE Q6HR PRN #5 supp.rect 09/24/17 Unknown Rx traMADol [Ultram] 50 mg PO Q6HR PRN #14 tablet 09/24/17 Unknown Rx HYDROcodone/ACETAMINOPHEN [[place] 1 each PO Q6H PRN #10 tablet 04/15/18 Unknown Rx 5-325 Tablet] Ondansetron [Zofran Odt] 4 mg PO Q8H PRN #10 tab.rapdis 04/15/18 Unknown Rx ED Review of Systems ROS: Stated complaint: ABD PAIN; N/V Other details as noted in HPI Comment: All other systems reviewed and negative Constitutional: denies: chills, fever Eyes: denies: eye pain, eye discharge, vision change ENT: denies: ear pain, throat pain Respiratory: denies: cough, shortness of breath, wheezing Cardiovascular: denies: chest pain, palpitations Gastrointestinal: abdominal pain, nausea, vomiting Genitourinary: denies: urgency, dysuria, discharge Musculoskeletal: denies: back pain, joint swelling, arthralgia Skin: denies: rash, lesions Neurological: numbness. denies: headache Physical Exam - Physical Exam Vital Signs: Vital Signs 04/15/18 04/15/18 04/15/18 02:19 05:00 05:17 Temperature 98.8 F 97.9 F Pulse Rate 75 57 L Respiratory 16 16 Rate Blood Pressure 166/114 149/93 Blood Pressure 154/105 [Left] O2 Sat by Pulse 97 100 100 Oximetry 04/15/18 06:00 Temperature Pulse Rate Respiratory Rate Blood Pressure 157/108 Blood Pressure [Left] O2 Sat by Pulse 100 Oximetry Physical Exam: GENERAL: The patient is well-developed well-nourished. HENT: Normocephalic. Atraumatic. Patient has moist mucous membranes. EYES: Extraocular motions are intact. Pupils equal reactive to light bilaterally. NECK: Supple. Trachea is midline. CHEST/LUNGS: Clear to auscultation. There is no respiratory distress noted. HEART/CARDIOVASCULAR: Regular. There is no tachycardia. There is no murmur. ABDOMEN: Abdomen is soft. Mild upper abdominal tenderness to palpation. No guarding. Patient has normal bowel sounds. There is no abdominal distention. SKIN: There is no rash. There is no edema. There is no diaphoresis. NEURO: The patient is awake, alert, and oriented. The patient is cooperative. The patient has no focal neurologic deficits. The patient has normal speech. MUSCULOSKELETAL: There is no tenderness or deformity. There is no limitation range of motion. There is no evidence of acute injury. ED Course Vital Signs 04/15/18 04/15/18 04/15/18 02:19 05:00 05:17 Temperature 98.8 F 97.9 F Pulse Rate 75 57 L Respiratory 16 16 Rate Blood Pressure 166/114 149/93 Blood Pressure 154/105 [Left] O2 Sat by Pulse 97 100 100 Oximetry 04/15/18 06:00 Temperature Pulse Rate Respiratory Rate Blood Pressure 157/108 Blood Pressure [Left] O2 Sat by Pulse 100 Oximetry ED Medical Decision Making - Lab Data Result diagrams: 04/15/18 02:52 04/15/18 02:52 - Radiology Data Radiology results: report reviewed, image reviewed interpreted by me: Abdominal x-ray shows nonspecific nonobstructive bowel gas. Limited abdominal ultrasound: Right upper quadrant pain. Images of the liver and pancreas are unremarkable. The gallbladder contains a very minimal amount of dependent sludge but is otherwise anatomically unremarkable. The CBD diameter is 2.8 mm. The right renal length is 10.5 cm and is echogenically normal. The proximal diameter of the aorta is 2 cm and the IVC is in normal position. Impression: Minimal gallbladder sludge. Transcribed By: HUNTER Dictated By: JJ ALCAZAR MD Electronically Authenticated By: JJ ALCAZAR MD Signed Date/Time: 04/15/18 0719 - Medical Decision Making Patient complains of a two-week history of upper abdominal pain with some nausea and vomiting. Labs are unremarkable. Abdominal x-ray shows nonspecific nonobstructive bowel gas. Ultrasound shows some gallbladder sludge. No signs of any cholecystitis. Vital signs stable throughout her ED course. Patient will be discharged home with some Zofran, a small amount of pain medication, and referrals for primary care and general surgery. She's been encouraged to return to the emergency Department with any worsening of her symptoms or any acute distress. - Differential Diagnosis cholelithiasis, cholecystitis, pancreatitis, gastritis Critical Care Time: No Critical care attestation.: If time is entered above; I have spent that time in minutes in the direct care of this critically ill patient, excluding procedure time. ED Disposition Clinical Impression: Gallbladder sludge, Biliary colic Abdominal pain Qualifiers: Abdominal location: upper abdomen, unspecified Qualified Code(s): R10.10 - Upper abdominal pain, unspecified Nausea & vomiting Qualifiers: Vomiting type: unspecified Vomiting Intractability: non-intractable Qualified Code(s): R11.2 - Nausea with vomiting, unspecified Disposition: DC-01 TO HOME OR SELFCARE Is pt being admited?: No Condition: Stable Instructions: Biliary Colic (ED), Abdominal Pain (ED) Additional Instructions: Please follow up with a primary care physician. I have also given a referral for a local general surgeon, Dr. Miller, to follow up regarding the gallbladder sludge and abdominal pain. Return to the emergency Department with any worsening of your symptoms or any acute distress. You have been prescribed a medication that is sedating and therefore should not be taken prior to driving, working, and responsible for children and in no way should be mixed with alcohol of any quantity. Prescriptions: HYDROcodone/ACETAMINOPHEN [[place] 5-325 Tablet] 1 each PO Q6H PRN #10 tablet PRN Reason: Pain, Moderate (4-6) Ondansetron [Zofran Odt] 4 mg PO Q8H PRN #10 tab.rapdis PRN Reason: Nausea Referrals: PRIMARY CARE, [Primary Care Provider] - 3-5 Days MORALES MILLER MD [Staff Physician] - 3-5 Days Time of Disposition: 07:54
--- NOTE | 2018-04-15 07:13 | XRay Report ---
FINAL REPORT EXAM: XR ABDOMEN 2V HISTORY: Abd pain TECHNIQUE: upright and supine views of the abdomen and pelvis PRIORS: None. FINDINGS: No pneumoperitoneum. Bowel gas pattern is nonobstructive. No pathologic calcification or fracture. Umbilical jewelry is noted. IMPRESSION: No acute finding. Consider CT for more sensitive and specific evaluation of abdominal pain as warranted.
--- NOTE | 2018-04-15 07:42 | Ultrasound Report ---
Limited abdominal ultrasound: Right upper quadrant pain. Images of the liver and pancreas are unremarkable. The gallbladder contains a very minimal amount of dependent sludge but is otherwise anatomically unremarkable. The CBD diameter is 2.8 mm. The right renal length is 10.5 cm and is echogenically normal. The proximal diameter of the aorta is 2 cm and the IVC is in normal position. Impression: Minimal gallbladder sludge.
[2018-04-15 08:10] VITALS: BP 159/98
== END 2018-04-15 08:32 | disposition home or self-care (01) ==
LOC: ED 02:12
DX: K80.50 Calculus of bile duct without cholangitis or cholecystitis without obstruction (principal); R11.2 Nausea with vomiting, unspecified; R10.10 Upper abdominal pain, unspecified; I10 Essential (primary) hypertension; G43.909 Migraine, unspecified, not intractable, without status migrainosus
CPT/HCPCS: 36415; 74019; 76705; 80053; 81001; 81025; 85025; 96361; 96374; 99284; J2405; J7030

== ENCOUNTER 2018-05-21 08:26 | Emergency (ER) | payer MEDICAID ==
[2018-05-21 08:34] VITALS: BP 159/111
[2018-05-21] MEDS ORDERED: NACL 0.9% 1000 ML 1,000 ML IV ONE (08:35)
[2018-05-21] MEDS ORDERED: CATAPRES ONE (08:36)
[2018-05-21] MEDS ORDERED: CATAPRES PO ONE (08:42)
[2018-05-21 09:06] LABS: Basophils % (Auto) 0.5 % (0.0-1.8); Eosinophils # (Auto) 0.4 K/mm3 (0.0-0.4); Eosinophils % (Auto) 5.4 % (0.0-4.3); Hematocrit 36.3 % (30.3-42.9); Hemoglobin 12.1 gm/dl (10.1-14.3); Lymphocytes # (Auto) 1.7 K/mm3 (1.2-5.4); Mean Corpuscular HGB Conc 33 % (30-34); Mean Corpuscular Hemoglobin 27 pg (28-32); Mean Corpuscular Volume 81 fl (79-97); Monocytes # (Auto) 0.5 K/mm3 (0.0-0.8); Monocytes % (Auto) 7.3 % (0.0-7.3); Platelet Count 236 K/mm3 (140-440); Red Blood Count 4.47 M/mm3 (3.65-5.03); Red Cell Distribution Width 14.4 % (13.2-15.2)
[2018-05-21 09:31] LABS: Alanine Aminotransferase 10 units/L (7-56); BUN/Creatinine Ratio 9; Blood Urea Nitrogen 10 mg/dL (7-17); Calcium 9.1 mg/dL (8.4-10.2); Hemolysis Index 10; Lipase 15 units/L (13-60)
[2018-05-21 10:41] LABS: Bacteria,Urine 1+ /HPF (Negative); Bilirubin,Urine NEG (Negative); Blood,Urine NEG (Negative); Color,Urine Yellow (Yellow); Mucus,Urine FEW /HPF; Protein,Urine <15 mg/dL mg/dL (Negative); Urobilinogen,Urine < 2.0 mg/dL (<2.0)
--- NOTE | 2018-05-21 10:47 | Emergency Department Report ---
ED Abdominal Pain HPI - General Chief Complaint: Abdominal Pain Stated Complaint: UPPER ABD PAIN Time Seen by Provider: 05/21/18 10:38 Source: patient Mode of arrival: Ambulatory Limitations: No Limitations - History of Present Illness Initial Comments: This is a 22-year-old -[place] female who presents with upper abdominal pain for 2-3 months. Patient states she came in last month with similar symptoms and referred to surgeon for evaluation of gallbladder sludge. Patient states she went to see specialists and was told she was constipated and started on several stool softeners and laxatives. Patient states she is continuing to have nausea, diarrhea periodically, with abdominal cramping and pain. Pain is intermittent and 4 out of 10 on pain scale. LMP 03/09/2018. Denies frequency, urgency, dysuria, chest pain, and back pain. MD Complaint: abdominal pain Onset/Timin -: month(s) Location: LUQ, RUQ Radiation: none Migration to: no migration Severity: moderate Severity scale (0 -10): 9 Quality: cramping, aching Consistency: intermittent Improves With: nothing Worsens With: bowel movement Associated Symptoms: nausea, diarrhea. denies: vomiting, fever, chills, constipation, dysuria, hematemesis, hematochezia, melena, hematuria, anorexia, syncope - Related Data LMP Date: 03/09/18 Previous Rx's Medication Instructions Recorded Last Taken Type Menthol/Colloidal Oatmeal [Eucerin 200 ml TP TID #1 lotion 06/15/15 Unknown Rx Calm Itch-Relief Lot] Butalbit/Acetamin/Caff/Codeine 1 cap PO Q8HR PRN #20 cap 11/29/15 Unknown Rx [Fioricet/Codeine 03-534-41-30] Ketorolac [Toradol] 10 mg PO Q6H PRN #20 tablet 04/29/16 Unknown Rx Ondansetron [Zofran TAB] 4 mg PO Q8HR PRN #20 tablet 04/29/16 Unknown Rx SUMAtriptan SUCCINATE [Imitrex] 50 mg PO BID #60 tab 04/29/16 Unknown Rx Cyclobenzaprine HCl [Flexeril 5 MG 5 mg PO TID #20 tab 06/05/16 Unknown Rx TAB] hydroCHLOROthiazide [HCTZ] 25 mg PO QAM #30 tablet 06/05/16 Unknown Rx Ibuprofen [Motrin 800 MG tab] 800 mg PO Q8HR PRN #20 tablet 09/03/16 Unknown Rx HYDROcodone/APAP 7.5-325 [[place] 1 each PO Q8HR PRN #12 tablet 12/22/16 Unknown Rx 7.5-325 mg TAB] Ondansetron [Zofran TAB] 4 mg PO Q8HR PRN #20 tablet 12/22/16 Unknown Rx predniSONE [Deltasone] 20 mg PO QDAY #5 tab 02/04/17 Unknown Rx Ibuprofen [Motrin 800 MG tab] 800 mg PO Q8H PRN #30 tablet 03/22/17 Unknown Rx Pseudoephedrine [Sudafed] 30 mg PO TID #30 tablet 03/22/17 Unknown Rx diphenhydrAMINE [Benadryl CAP] 25 mg PO Q6HR PRN #40 capsule 03/22/17 Unknown Rx Diphenoxylate HCl/Atropine 1 each PO QID PRN #20 tablet 09/24/17 Unknown Rx [Lomotil 2.5-0.025 mg Tablet] Promethazine [Phenergan TAB] 25 mg PO Q6HR PRN #20 tab 09/24/17 Unknown Rx Promethazine [Phenergan] 25 mg [place] Q6HR PRN #5 supp.rect 09/24/17 Unknown Rx traMADol [Ultram] 50 mg PO Q6HR PRN #14 tablet 09/24/17 Unknown Rx HYDROcodone/ACETAMINOPHEN [[place] 1 each PO Q6H PRN #10 tablet 04/15/18 Unknown Rx 5-325 Tablet] Ondansetron [Zofran Odt] 4 mg PO Q8H PRN #10 tab.rapdis 04/15/18 Unknown Rx Allergies Allergy/AdvReac Type Severity Reaction Status Date / Time cephalexin monohydrate Allergy Swelling Verified 04/15/18 02:19 [From Keflex] sulfamethoxazole Allergy Swelling Verified 04/15/18 02:19 [From Bactrim] trimethoprim [From Bactrim] Allergy Swelling Verified 04/15/18 02:19 watermelon Allergy Hives Verified 04/15/18 02:19 ED Review of Systems ROS: Stated complaint: UPPER ABD PAIN Other details as noted in HPI Constitutional: denies: chills, fever Respiratory: denies: cough, shortness of breath, wheezing Cardiovascular: denies: chest pain, palpitations Gastrointestinal: abdominal pain, nausea, diarrhea. denies: vomiting, constipation, hematemesis, melena, hematochezia Genitourinary: denies: urgency, dysuria, frequency, discharge Musculoskeletal: denies: back pain, joint swelling, arthralgia Neurological: denies: headache, weakness, paresthesias Psychiatric: denies: anxiety, depression ED Past Medical Hx - Past Medical History Previous Medical History?: Yes Hx Hypertension: Yes (noncompliant with HCTZ x3 mos) Hx Headaches / Migraines: Yes Additional medical history: glaucoma, anemic - Surgical History Past Surgical History?: No Hx Coronary Stent: No Hx Cholecystectomy: No Hx Appendectomy: No - Social History Smoking Status: Never Smoker Substance Use Type: None - Medications Home Medications: Home Medications Medication Instructions Recorded Confirmed Last Taken Type Menthol/Colloidal Oatmeal [Eucerin 200 ml TP TID #1 lotion 06/15/15 Unknown Rx Calm Itch-Relief Lot] Butalbit/Acetamin/Caff/Codeine 1 cap PO Q8HR PRN #20 cap 11/29/15 Unknown Rx [Fioricet/Codeine 89-635-45-30] Ketorolac [Toradol] 10 mg PO Q6H PRN #20 tablet 04/29/16 Unknown Rx Ondansetron [Zofran TAB] 4 mg PO Q8HR PRN #20 tablet 04/29/16 Unknown Rx SUMAtriptan SUCCINATE [Imitrex] 50 mg PO BID #60 tab 04/29/16 Unknown Rx Cyclobenzaprine HCl [Flexeril 5 MG 5 mg PO TID #20 tab 06/05/16 Unknown Rx TAB] hydroCHLOROthiazide [HCTZ] 25 mg PO QAM #30 tablet 06/05/16 Unknown Rx Ibuprofen [Motrin 800 MG tab] 800 mg PO Q8HR PRN #20 tablet 09/03/16 Unknown Rx HYDROcodone/APAP 7.5-325 [[place] 1 each PO Q8HR PRN #12 tablet 12/22/16 Unknown Rx 7.5-325 mg TAB] Ondansetron [Zofran TAB] 4 mg PO Q8HR PRN #20 tablet 12/22/16 Unknown Rx predniSONE [Deltasone] 20 mg PO QDAY #5 tab 02/04/17 Unknown Rx Ibuprofen [Motrin 800 MG tab] 800 mg PO Q8H PRN #30 tablet 03/22/17 Unknown Rx Pseudoephedrine [Sudafed] 30 mg PO TID #30 tablet 03/22/17 Unknown Rx diphenhydrAMINE [Benadryl CAP] 25 mg PO Q6HR PRN #40 capsule 03/22/17 Unknown Rx Diphenoxylate HCl/Atropine 1 each PO QID PRN #20 tablet 09/24/17 Unknown Rx [Lomotil 2.5-0.025 mg Tablet] Promethazine [Phenergan TAB] 25 mg PO Q6HR PRN #20 tab 09/24/17 Unknown Rx Promethazine [Phenergan] 25 mg [place] Q6HR PRN #5 supp.rect 09/24/17 Unknown Rx traMADol [Ultram] 50 mg PO Q6HR PRN #14 tablet 09/24/17 Unknown Rx HYDROcodone/ACETAMINOPHEN [[place] 1 each PO Q6H PRN #10 tablet 04/15/18 Unknown Rx 5-325 Tablet] Ondansetron [Zofran Odt] 4 mg PO Q8H PRN #10 tab.rapdis 04/15/18 Unknown Rx ED Physical Exam - General Limitations: No Limitations General appearance: alert, in no apparent distress - Respiratory Respiratory exam: Present: normal lung sounds bilaterally. Absent: respiratory distress - Cardiovascular Cardiovascular Exam: Present: regular rate, normal rhythm. Absent: systolic murmur, diastolic murmur, rubs, gallop - GI/Abdominal GI/Abdominal exam: Present: soft, tenderness (RUQ and LUQ tenderness), normal bowel sounds. Absent: distended, guarding, rebound, rigid, organomegaly, mass - Back Exam Back exam: Present: normal inspection. Absent: CVA tenderness (R), CVA tenderness (L) - Neurological Exam Neurological exam: Present: alert, oriented X3, normal gait - Psychiatric Psychiatric exam: Present: normal affect, normal mood - Skin Skin exam: Present: warm, dry, intact, normal color. Absent: rash ED Course Vital Signs 05/21/18 05/21/18 08:30 08:42 Temperature 98.8 F Pulse Rate 79 79 Respiratory 18 Rate Blood Pressure 159/111 159/111 O2 Sat by Pulse 99 Oximetry ED Medical Decision Making - Lab Data Result diagrams: 05/21/18 08:45 08/18/18 08:45 Lab Results 05/21/18 05/21/18 05/21/18 Range/Units 08:45 08:45 08:45 WBC 7.3 (4.5-11.0) K/mm3 RBC 4.47 (3.65-5.03) M/mm3 Hgb 12.1 (10.1-14.3) gm/dl Hct 36.3 (30.3-42.9) % MCV 81 (79-97) fl MCH 27 L (28-32) pg MCHC 33 (30-34) % RDW 14.4 (13.2-15.2) % Plt Count 236 (140-440) K/mm3 Lymph % (Auto) 23.0 (13.4-35.0) % [place] % (Auto) 7.3 (0.0-7.3) % Eos % (Auto) 5.4 H (0.0-4.3) % Baso % (Auto) 0.5 (0.0-1.8) % Lymph # 1.7 (1.2-5.4) K/mm3 [place] # 0.5 (0.0-0.8) K/mm3 Eos # 0.4 (0.0-0.4) K/mm3 Baso # 0.0 (0.0-0.1) K/mm3 Seg Neutrophils % 63.8 (40.0-70.0) % Seg Neutrophils # 4.6 (1.8-7.7) K/mm3 Sodium 136 L (137-145) mmol/L Potassium 4.0 (3.6-5.0) mmol/L Chloride 104.2 (98-107) mmol/L Carbon Dioxide 21 L (22-30) mmol/L Anion Gap 15 mmol/L BUN 10 (7-17) mg/dL Creatinine 1.1 (0.7-1.2) mg/dL Estimated GFR > 60 ml/min BUN/Creatinine Ratio 9 % Glucose 99 (65-100) mg/dL Calcium 9.1 (8.4-10.2) mg/dL Total Bilirubin 0.60 (0.1-1.2) mg/dL AST 16 (5-40) units/L ALT 10 (7-56) units/L Alkaline Phosphatase 96 (35-129) units/L Total Protein 7.5 (6.3-8.2) g/dL Albumin 4.0 (3.9-5) g/dL Albumin/Globulin Ratio 1.1 % Lipase 15 (13-60) units/L HCG, Qual Negative (Negative) Urine Color (Yellow) Urine Turbidity (Clear) Urine pH (5.0-7.0) Ur Specific [place] (1.003-1.030) Urine Protein (Negative) mg/dL Urine Glucose (UA) (Negative) mg/dL Urine Ketones (Negative) mg/dL Urine Blood (Negative) Urine Nitrite (Negative) Urine Bilirubin (Negative) Urine Urobilinogen (<2.0) mg/dL Ur Leukocyte Esterase (Negative) Urine WBC (Auto) (0.0-6.0) /HPF Urine RBC (Auto) (0.0-6.0) /HPF U Epithel Cells (Auto) (0-13.0) /HPF Urine Bacteria (Auto) (Negative) /HPF Urine Mucus /HPF 05/21/18 Range/Units 10:25 WBC (4.5-11.0) K/mm3 RBC (3.65-5.03) M/mm3 Hgb (10.1-14.3) gm/dl Hct (30.3-42.9) % MCV (79-97) fl MCH (28-32) pg MCHC (30-34) % RDW (13.2-15.2) % Plt Count (140-440) K/mm3 Lymph % (Auto) (13.4-35.0) % [place] % (Auto) (0.0-7.3) % Eos % (Auto) (0.0-4.3) % Baso % (Auto) (0.0-1.8) % Lymph # (1.2-5.4) K/mm3 [place] # (0.0-0.8) K/mm3 Eos # (0.0-0.4) K/mm3 Baso # (0.0-0.1) K/mm3 Seg Neutrophils % (40.0-70.0) % Seg Neutrophils # (1.8-7.7) K/mm3 Sodium (137-145) mmol/L Potassium (3.6-5.0) mmol/L Chloride (98-107) mmol/L Carbon Dioxide (22-30) mmol/L Anion Gap mmol/L BUN (7-17) mg/dL Creatinine (0.7-1.2) mg/dL Estimated GFR ml/min BUN/Creatinine Ratio % Glucose (65-100) mg/dL Calcium (8.4-10.2) mg/dL Total Bilirubin (0.1-1.2) mg/dL AST (5-40) units/L ALT (7-56) units/L Alkaline Phosphatase (35-129) units/L Total Protein (6.3-8.2) g/dL Albumin (3.9-5) g/dL Albumin/Globulin Ratio % Lipase (13-60) units/L HCG, Qual (Negative) Urine Color Yellow (Yellow) Urine Turbidity Cloudy (Clear) Urine pH 6.0 (5.0-7.0) Ur Specific [place] 1.013 (1.003-1.030) Urine Protein <15 mg/dl (Negative) mg/dL Urine Glucose (UA) Neg (Negative) mg/dL Urine Ketones Neg (Negative) mg/dL Urine Blood Neg (Negative) Urine Nitrite Neg (Negative) Urine Bilirubin Neg (Negative) Urine Urobilinogen < 2.0 (<2.0) mg/dL Ur Leukocyte Esterase Neg (Negative) Urine WBC (Auto) 2.0 (0.0-6.0) /HPF Urine RBC (Auto) 2.0 (0.0-6.0) /HPF U Epithel Cells (Auto) 11.0 (0-13.0) /HPF Urine Bacteria (Auto) 1+ (Negative) /HPF Urine Mucus Few /HPF - Radiology Data Radiology results: report reviewed, image reviewed FINAL REPORT EXAM: CT ABDOMEN PELVIS W CON HISTORY: RUQ and LUQ tenderness COMPARISON: None. TECHNIQUE: Multiple contiguous axial images were obtained from the lung bases to the pubic since after administration of IV contrast. Reformatted sagittal and coronal images were available for review. FINDINGS: Lung bases: Normal. Visualized heart and mediastinum: Normal. Liver: Normal. Spleen: Normal. Pancreas: Normal. Gallbladder and Biliary Tree: No calcified gallstones. No biliary ductal dilatation. Adrenal glands: Normal. Kidneys: Symmetric enhancement to both kidneys. No hydronephrosis. Bladder: Normal. Pelvic organs: Normal. Bowel: No focal wall thickening. No evidence of obstruction. Normal appendix measuring up to 6 millimeters in diameter. Peritoneum: No significant mesenteric adenopathy. No free air or free fluid. Vasculature: Abdominal aorta is normal in caliber without evidence of aneurysm. Normal appearance of the portal venous system and the inferior vena cava. Bones and soft tissues: No suspicious osseous lesions. No acute fracture or dislocation. Normal soft tissues. IMPRESSION: No acute intra-abdominal pathology. Normal appendix. No evidence of obstruction. - Medical Decision Making Patient is stable and was examined by myself. Vitals stable. is in no acute distress. Labs obtained and all unremarkable. Patient had to roller picker her children from relative and decided to sign out AMA. CT of abdomen obtained and dictated by radiologist. No acute intra-abdominal pathology. Normal appendix. No evidence of obstruction. Critical care attestation.: If time is entered above; I have spent that time in minutes in the direct care of this critically ill patient, excluding procedure time. ED Disposition Clinical Impression: Left against medical advice Disposition: DC-07 LEFT AGAINST MED ADVICE Is pt being admited?: No Condition: Stable Instructions: Abdominal Pain (ED) Referrals: PRIMARY CARE [Primary Care Provider] - 3-5 Days Forms: AMA Form, Work/School Release Form(ED)
--- NOTE | 2018-05-21 15:28 | Cat Scan Report ---
FINAL REPORT EXAM: CT ABDOMEN PELVIS W CON HISTORY: RUQ and LUQ tenderness COMPARISON: None. TECHNIQUE: Multiple contiguous axial images were obtained from the lung bases to the pubic since after administration of IV contrast. Reformatted sagittal and coronal images were available for review. FINDINGS: Lung bases: Normal. Visualized heart and mediastinum: Normal. Liver: Normal. Spleen: Normal. Pancreas: Normal. Gallbladder and Biliary Tree: No calcified gallstones. No biliary ductal dilatation. Adrenal glands: Normal. Kidneys: Symmetric enhancement to both kidneys. No hydronephrosis. Bladder: Normal. Pelvic organs: Normal. Bowel: No focal wall thickening. No evidence of obstruction. Normal appendix measuring up to 6 millimeters in diameter. Peritoneum: No significant mesenteric adenopathy. No free air or free fluid. Vasculature: Abdominal aorta is normal in caliber without evidence of aneurysm. Normal appearance of the portal venous system and the inferior vena cava. Bones and soft tissues: No suspicious osseous lesions. No acute fracture or dislocation. Normal soft tissues. IMPRESSION: No acute intra-abdominal pathology. Normal appendix. No evidence of obstruction.
== END 2018-05-21 13:30 | disposition left against medical advice (07) ==
LOC: ED 08:26
DX: R10.10 Upper abdominal pain, unspecified (principal); I10 Essential (primary) hypertension; G43.909 Migraine, unspecified, not intractable, without status migrainosus; Z88.5 Allergy status to narcotic agent; Z88.2 Allergy status to sulfonamides; Z91.018 Allergy to other foods
CPT/HCPCS: 36415; 74177; 80053; 81001; 83690; 84703; 85025; 99284; Q9967

== ENCOUNTER 2018-11-23 10:29 | Emergency (ER) | payer MEDICAID ==
[2018-11-23 10:40] VITALS: BP 173/111
--- NOTE | 2018-11-23 11:52 | Emergency Department Report ---
ED General Adult HPI - General Chief complaint: Chest Pain Stated complaint: SOB Time Seen by Provider: 11/23/18 11:15 Source: patient Mode of arrival: Ambulatory Limitations: No Limitations - History of Present Illness Initial comments: Patient is a 23-year-old female past medical history of hypertension who states that she has been having some pleuritic chest discomfort and epigastric pain when she takes a deep breath for the past several months. Patient states it's worse also when lying flat. Patient states is sharp pain initially began in the epigastrium. Patient denies any cough. Patient states there's been no nausea vomiting or diarrhea at this time. Severity scale (0 -10): 9 - Related Data Previous Rx's Medication Instructions Recorded Last Taken Type Menthol/Colloidal Oatmeal [Eucerin 200 ml TP TID #1 lotion 06/15/15 Unknown Rx Calm Itch-Relief Lot] Butalbit/Acetamin/Caff/Codeine 1 cap PO Q8HR PRN #20 cap 11/29/15 Unknown Rx [Fioricet/Codeine 93-662-72-30] Ketorolac [Toradol] 10 mg PO Q6H PRN #20 tablet 04/29/16 Unknown Rx Ondansetron [Zofran TAB] 4 mg PO Q8HR PRN #20 tablet 04/29/16 Unknown Rx SUMAtriptan SUCCINATE [Imitrex] 50 mg PO BID #60 tab 04/29/16 Unknown Rx Cyclobenzaprine HCl [Flexeril 5 MG 5 mg PO TID #20 tab 06/05/16 Unknown Rx TAB] hydroCHLOROthiazide [HCTZ] 25 mg PO QAM #30 tablet 06/05/16 Unknown Rx Ibuprofen [Motrin 800 MG tab] 800 mg PO Q8HR PRN #20 tablet 09/03/16 Unknown Rx HYDROcodone/APAP 7.5-325 [[place] 1 each PO Q8HR PRN #12 tablet 12/22/16 Unknown Rx 7.5-325 mg TAB] Ondansetron [Zofran TAB] 4 mg PO Q8HR PRN #20 tablet 12/22/16 Unknown Rx predniSONE [Deltasone] 20 mg PO QDAY #5 tab 02/04/17 Unknown Rx Ibuprofen [Motrin 800 MG tab] 800 mg PO Q8H PRN #30 tablet 03/22/17 Unknown Rx Pseudoephedrine [Sudafed] 30 mg PO TID #30 tablet 03/22/17 Unknown Rx diphenhydrAMINE [Benadryl CAP] 25 mg PO Q6HR PRN #40 capsule 03/22/17 Unknown Rx Diphenoxylate HCl/Atropine 1 each PO QID PRN #20 tablet 09/24/17 Unknown Rx [Lomotil 2.5-0.025 mg Tablet] Promethazine [Phenergan TAB] 25 mg PO Q6HR PRN #20 tab 09/24/17 Unknown Rx Promethazine [Phenergan] 25 mg [place] Q6HR PRN #5 supp.rect 09/24/17 Unknown Rx traMADol [Ultram] 50 mg PO Q6HR PRN #14 tablet 09/24/17 Unknown Rx HYDROcodone/ACETAMINOPHEN [[place] 1 each PO Q6H PRN #10 tablet 04/15/18 Unknown Rx 5-325 Tablet] Ondansetron [Zofran Odt] 4 mg PO Q8H PRN #10 tab.rapdis 04/15/18 Unknown Rx Butalb/Acetamin/Caff 50-325-40 1 each PO Q4H PRN #20 tablet 08/24/18 Unknown Rx [Fioricet] Amlodipine Besylate [Norvasc] 5 mg PO DAILY #30 tablet 11/23/18 Unknown Rx Famotidine [Pepcid] 40 mg PO QHS #10 tablet 11/23/18 Unknown Rx Pantoprazole [Protonix TAB] 20 mg PO QDAY #30 tablet. 11/23/18 Unknown Rx traMADol [Ultram] 50 mg PO Q6HR PRN #10 tablet 11/23/18 Unknown Rx Allergies Allergy/AdvReac Type Severity Reaction Status Date / Time cephalexin monohydrate Allergy Swelling Verified 04/15/18 02:19 [From Keflex] sulfamethoxazole Allergy Swelling Verified 04/15/18 02:19 [From Bactrim] trimethoprim [From Bactrim] Allergy Swelling Verified 04/15/18 02:19 watermelon Allergy Hives Verified 04/15/18 02:19 ED Review of Systems ROS: Stated complaint: SOB Other details as noted in HPI Comment: All other systems reviewed and negative ED Past Medical Hx - Past Medical History Hx Hypertension: Yes Hx Headaches / Migraines: Yes Additional medical history: glaucoma, anemic - Surgical History Past Surgical History?: No Hx Coronary Stent: No Hx Cholecystectomy: No Hx Appendectomy: No - Social History Smoking Status: Never Smoker Substance Use Type: None - Medications Home Medications: Home Medications Medication Instructions Recorded Confirmed Last Taken Type Menthol/Colloidal Oatmeal [Eucerin 200 ml TP TID #1 lotion 06/15/15 Unknown Rx Calm Itch-Relief Lot] Butalbit/Acetamin/Caff/Codeine 1 cap PO Q8HR PRN #20 cap 11/29/15 Unknown Rx [Fioricet/Codeine 82-884-20-30] Ketorolac [Toradol] 10 mg PO Q6H PRN #20 tablet 04/29/16 Unknown Rx Ondansetron [Zofran TAB] 4 mg PO Q8HR PRN #20 tablet 04/29/16 Unknown Rx SUMAtriptan SUCCINATE [Imitrex] 50 mg PO BID #60 tab 04/29/16 Unknown Rx Cyclobenzaprine HCl [Flexeril 5 MG 5 mg PO TID #20 tab 06/05/16 Unknown Rx TAB] hydroCHLOROthiazide [HCTZ] 25 mg PO QAM #30 tablet 06/05/16 Unknown Rx Ibuprofen [Motrin 800 MG tab] 800 mg PO Q8HR PRN #20 tablet 09/03/16 Unknown Rx HYDROcodone/APAP 7.5-325 [[place] 1 each PO Q8HR PRN #12 tablet 12/22/16 Unknown Rx 7.5-325 mg TAB] Ondansetron [Zofran TAB] 4 mg PO Q8HR PRN #20 tablet 12/22/16 Unknown Rx predniSONE [Deltasone] 20 mg PO QDAY #5 tab 02/04/17 Unknown Rx Ibuprofen [Motrin 800 MG tab] 800 mg PO Q8H PRN #30 tablet 03/22/17 Unknown Rx Pseudoephedrine [Sudafed] 30 mg PO TID #30 tablet 03/22/17 Unknown Rx diphenhydrAMINE [Benadryl CAP] 25 mg PO Q6HR PRN #40 capsule 03/22/17 Unknown Rx Diphenoxylate HCl/Atropine 1 each PO QID PRN #20 tablet 09/24/17 Unknown Rx [Lomotil 2.5-0.025 mg Tablet] Promethazine [Phenergan TAB] 25 mg PO Q6HR PRN #20 tab 09/24/17 Unknown Rx Promethazine [Phenergan] 25 mg [place] Q6HR PRN #5 supp.rect 09/24/17 Unknown Rx traMADol [Ultram] 50 mg PO Q6HR PRN #14 tablet 09/24/17 Unknown Rx HYDROcodone/ACETAMINOPHEN [[place] 1 each PO Q6H PRN #10 tablet 04/15/18 Unknown Rx 5-325 Tablet] Ondansetron [Zofran Odt] 4 mg PO Q8H PRN #10 tab.rapdis 04/15/18 Unknown Rx Butalb/Acetamin/Caff 50-325-40 1 each PO Q4H PRN #20 tablet 08/24/18 Unknown Rx [Fioricet] Amlodipine Besylate [Norvasc] 5 mg PO DAILY #30 tablet 11/23/18 Unknown Rx Famotidine [Pepcid] 40 mg PO QHS #10 tablet 11/23/18 Unknown Rx Pantoprazole [Protonix TAB] 20 mg PO QDAY #30 tablet. 11/23/18 Unknown Rx traMADol [Ultram] 50 mg PO Q6HR PRN #10 tablet 11/23/18 Unknown Rx ED Physical Exam - General Limitations: No Limitations General appearance: alert, in no apparent distress - Head Head exam: Present: atraumatic, normocephalic - Eye Eye exam: Present: normal appearance - ENT ENT exam: Present: mucous membranes moist - Neck Neck exam: Present: normal inspection - Respiratory Respiratory exam: Present: normal lung sounds bilaterally. Absent: respiratory distress, wheezes, rales, rhonchi - Cardiovascular Cardiovascular Exam: Present: regular rate, normal rhythm. Absent: systolic murmur, diastolic murmur, rubs, gallop - GI/Abdominal GI/Abdominal exam: Present: soft, tenderness (epigastric), normal bowel sounds. Absent: distended, guarding, rebound, rigid - Extremities Exam Extremities exam: Present: normal inspection - Back Exam Back exam: Present: normal inspection - Neurological Exam Neurological exam: Present: alert, oriented X3 - Psychiatric Psychiatric exam: Present: normal affect, normal mood - Skin Skin exam: Present: warm, dry, intact, normal color. Absent: rash ED Course Vital Signs 11/23/18 10:38 Temperature 98.4 F Pulse Rate 68 Respiratory 18 Rate Blood Pressure 173/111 O2 Sat by Pulse 100 Oximetry ED Medical Decision Making - Medical Decision Making Patient likely with peptic ulcer disease and GERD. Patient be started on nasal symptomatic relief and will be discharged home. Patient also states she is compliant with her lisinopril however blood pressures remained high. Patient started on Norvasc. Critical care attestation.: If time is entered above; I have spent that time in minutes in the direct care of this critically ill patient, excluding procedure time. ED Disposition Clinical Impression: PUD (peptic ulcer disease), Hypertensive urgency GERD (gastroesophageal reflux disease) Qualifiers: Esophagitis presence: esophagitis presence not specified Qualified Code(s): K21.9 - Gastro-esophageal reflux disease without esophagitis Disposition: DC-01 TO HOME OR SELFCARE Is pt being admited?: No Does the pt Need Aspirin: No Condition: Stable Instructions: Diet for Ulcers and Gastritis (ED), Gastroesophageal Reflux Disease (ED) Referrals: JOSE GUADALUPE BLOCK MD [Staff Physician] - 3-5 Days Time of Disposition: 11:52
== END 2018-11-23 12:01 | disposition home or self-care (01) ==
LOC: ED 10:29
DX: K21.9 Gastro-esophageal reflux disease without esophagitis (principal); K27.9 Peptic ulcer, site unspecified, unspecified as acute or chronic, without hemorrhage or perforation; I16.0 Hypertensive urgency; I10 Essential (primary) hypertension; G43.909 Migraine, unspecified, not intractable, without status migrainosus; Z88.1 Allergy status to other antibiotic agents; Z88.2 Allergy status to sulfonamides; Z88.8 Allergy status to other drugs, medicaments and biological substances
CPT/HCPCS: 93005; 93010; 99282